=== PATIENT | female | born 1980 | race Caucasian/White ===

== ENCOUNTER 2016-07-06 03:52 | Emergency (ER) | payer MEDICAID ==
[~2016-07-06] VITALS: Ht 157.5 cm; Wt 52.9 kg
[~2016-07-06 03:52] MED LIST: DENIES
[2016-07-06 03:55] VITALS: Ht 157.5 cm; Wt 52.9 kg
[2016-07-06] MEDS ORDERED: SILVER SULFADIAZINE 1% 25 GM CR TOP ONE (04:30)
[2016-07-06] MEDS ORDERED: BACITUD TOP (04:39)
[2016-07-06] MEDS ORDERED: CEPH500C PO (04:40)
--- NOTE | 2016-07-06 05:15 | ERD ---
ER Documentation Chief Complaint Date/Time DATE: 07/06/16 TIME: 05:13 Chief Complaint HOT WATER GARCIA ON RIGHT LOWER LEG 2% SKIN AREA 1ST DEGREE BURN HPI This is a 36-year-old female presents to the ER with a burn that happened about a week ago. Patient spilled hot water on her right lower leg. Patient states that area did blister and that blister popped. Patient states that area is now swollen and is getting painful. It is worse whenever she walks. She denies any fevers or chills. ROS 12 point review of systems was done, all negative except per HPI. Medications Home Meds Active Scripts Cephalexin* (Cephalexin*) 500 Mg Capsule, 500 MG PO BID for 7 Days, #14 CAP Prov:SASHA MACIEL Mallika 07/06/16 Bacitracin* (Bacitracin Oint (UD)*) 1 Applic Oint, 1 APPLIC TOP ONCE for 7 Days , PKT APPLY TO Prov:SASHA MACIEL Mallika 07/06/16 Reported Medications [Denies] No Conflict Check 02/21/11 Allergies Allergies: Coded Allergies: No Known Drug Allergy (Verified Allergy, Unknown, 02/21/11) PMhx/Soc History of Surgery: Yes (c/section x4) Hx Miscellaneous Medical Probl: Yes (ANEMIA) Hx Alcohol Use: No Hx Substance Use: No Hx Tobacco Use: No Smoking Status: Never smoker Physical Exam Vitals Vital Signs Date Time Temp Pulse Resp B/P Pulse Ox O2 Delivery O2 Flow Rate FiO2 07/06/16 03:55 97.6 69 20 110/62 100 Physical Exam Const: [] Head: Atraumatic Eyes: Normal Conjunctiva. Resp: Clear to auscultation bilaterally Cardio: Regular rate and rhythm, no murmurs Skin: Healing second-degree burn to the right lower leg about 1% TBSA. Chronic erythema, warmth to the touch Neur: Awake and alert Psych: Normal Mood and Affect Results 24 hrs Current Medications Medications (Trade) Dose Ordered Sig/Diego Route PRN Reason Start Time Stop Time Status Last Admin Dose Admin Silver Sulfadiazine (Thermazene 1% 25 Gm) 1 applic ONCE ONCE TOP 07/06/16 04:30 07/06/16 04:31 DC 07/06/16 04:22 Procedures/MDM This is a 36-year-old female presents to the ER with a burn to her right lower leg. Area appears to be infected. Patient is afebrile and well-appearing I doubt systemic infection. Patient will be sent home with bacitracin with Keflex. She is to follow-up with her primary care doctor within 1-2 days or return to ER sooner if symptoms worsen. My medical decision making was shared with the patient she understands and agrees with plan. Departure Diagnosis: Primary Impression: Burn injury Condition: Stable Patient Instructions: Burn, Second Degree Referrals: GREGORIO GAMBOA MD Additional Instructions: Llame al doctor TARYN y ivan yandy ZAHRAA PARA DENTRO DE 1-2 ECKERT.Dgale a la secretaria que nosotros le instruimos hacer esta zahraa.Avise o llame si jacobs condicin se empeora antes de la zahraa. Regresa aqui si peor o no mejor. SASHA MACIEL Jul 06, 2016 05:15
== END 2016-07-06 04:45 | disposition home or self-care (01) ==
LOC: FTE 03:52
DX: T24.231A Burn of second degree of right lower leg, initial encounter (principal); T31.0 Burns involving less than 10% of body surface; X11.8XXA Contact with other hot tap-water, initial encounter; Y92.9 Unspecified place or not applicable
CPT/HCPCS: 16000; Z7502; Z7610